=== PATIENT | female | born 1975 ===

== ENCOUNTER → 2018-09-09 | Outpatient (CLI) | payer OTHER ==
[~2018-09-09] MED LIST: REGADENOSON 0.4 MG/5 ML SYR IVP ONE
--- NOTE | 2018-09-09 13:44 | PDCARST ---
CAR Stress Test Results Type of Stress Test: Lexiscan stress test Description of Procedure: After informed consent was obtained, pt was established to ECG, blood pressure, HR and oximetry monitoring. STRESS EKG AND HEMODYNAMIC DATA. Resting heart rate: 97 BPM. Resting ECG: SR. Resting blood pressure: 118/74 mmHg. O2 saturation at rest: 99%. Peak heart rate: 133 BPM. Peak blood pressure: 112/80 mmHg. Arrhythmias: none. Symptoms: The patient experienced no typical symptoms of angina during stress or recovery. Stress/Infusion ECG: No change in rhythm with no significant ST/T wave changes. Stress/infusion O2 saturation: Impression: Uneventful Lexiscan infusion. Conclusion: Await nuclear images.
== END ==
LOC: FIMAGING 11:16
PROVIDERS: ATTEND Internal Medicine Interventional Cardiology
PROC: C22G1ZZ Tomographic (Tomo) Nuclear Medicine Imaging of Myocardium using Technetium 99m (Tc-99m) (ICD-10-PCS; principal; 2018-09-09)
DX: R07.9 Chest pain, unspecified (principal); J45.909 Unspecified asthma, uncomplicated
CPT/HCPCS: 78452; 93017; A9500; J2785